=== PATIENT | female | born 1980 | race Caucasian/White ===

== ENCOUNTER 2020-05-16 14:26 | Emergency (ER) | payer OTHER ==
[2020-05-16 15:06] LABS: #Eosinphils 0.5 thou/uL (0.0-0.7); #Lymphocytes 3.1 thou/uL (1.20-3.40); #Monocytes 0.6 thou/uL (0.11-0.59); #Neutrophils 7.1 thou/uL (1.40-6.50); %Basophils 0.3 % (0.0-1.0); %Eosinophils 4.3 % (0.0-10.0); %Lymphocytes 27.5 % (21.0-51.0); %Monocytes 5.4 % (0.0-10.0); %Neutrophils 62.5 % (42.0-75.0); Hemoglobin 17.4 g/dL (12.0-16.0); Mean Corpuscular HGB CONC 34.5 g/dL (32.0-36.0); Mean Corpuscular Hemoglobin 33.2 pg (27.0-31.0); Mean Platelet Volume 7.9 fL (7.4-10.4); Platelet Count 184 thou/uL (130-400); RBC Distribution Width 11.9 % (11.5-14.5); Red Blood Cell (RBC) Count 5.25 mill/uL (4.20-5.40); White Blood Cell (WBC) Count 11.4 thou/uL (4.8-10.8)
[2020-05-16 15:25] LABS: ALT (SGPT) 57 U/L (8-55); AST (SGOT) 34 U/L (5-34); Alkaline Phosphatase 111 U/L (40-110); Anion Gap 13 mmol/L (10-20); BUN (Urea Nitrogen) 12 mg/dL (7.0-18.7); Bilirubin, Total 0.7 mg/dL (0.2-1.2); Calc. Creatinine Clearance 0 mL/min (70-130); Calcium 9.2 mg/dL (7.8-10.44); Carbon Dioxide 23 mmol/L (22-29); Chloride 103 mmol/L (98-107); Globulin 3.3 g/dL (2.4-3.5); Glucose 181 mg/dL (70-105); Lipase 36 U/L (8-78); Potassium 3.4 mmol/L (3.5-5.1); Protein, Total 7.3 g/dL (6.0-8.3); Sodium 136 mmol/L (136-145)
[2020-05-16] MEDS ORDERED: Nitroglycerin 0.4 MG TAB 1 EACH ONE (17:00)
[2020-05-16] MEDS ORDERED: Acetaminophen 500 MG TAB ONE (17:07)
[2020-05-16 17:32] LABS: BHCG - Serum Negative (NEGATIVE); Pregs Control Background? CLEAR/WHITE (CLR/WHITE); Pregs Control Bar Appear? YES (CONTROL BAR)
== END 2020-05-16 18:04 | disposition left against medical advice (07) ==
LOC: ERS 14:26
DX: R07.2 Precordial pain (principal); I10 Essential (primary) hypertension; N17.9 Acute kidney failure, unspecified; E03.9 Hypothyroidism, unspecified; F17.210 Nicotine dependence, cigarettes, uncomplicated; R29.700 NIHSS score 0
CPT/HCPCS: 36415; 70450; 71045; 80053; 83690; 84484; 84703; 85025; 93005

== ENCOUNTER 2022-03-30 10:38 | Inpatient (IN) | payer BC, SELFPAY ==
[2022-03-30 11:30] LABS: #Basophils 0.1 thou/uL (0.0-0.2); #Eosinphils 0.3 thou/uL (0.0-0.7); #Lymphocytes 2.7 thou/uL (1.20-3.40); #Monocytes 0.5 thou/uL (0.11-0.59); #Neutrophils 4.2 thou/uL (1.40-6.50); %Basophils 0.9 % (0.0-1.0); %Eosinophils 3.8 % (0.0-10.0); %Lymphocytes 34.8 % (21.0-51.0); %Monocytes 6.3 % (0.0-10.0); %Neutrophils 54.2 % (42.0-75.0); Mean Corpuscular HGB CONC 35.7 g/dL (32.0-36.0); Mean Corpuscular Hemoglobin 32.8 pg (27.0-31.0); Platelet Count 156 10x3/uL (130-400); RBC Distribution Width 11.8 % (11.5-14.5); Red Blood Cell (RBC) Count 5.49 mill/uL (4.20-5.40); White Blood Cell (WBC) Count 7.8 10x3/uL (4.8-10.8)
[2022-03-30 11:51] LABS: ALT (SGPT) 99 U/L (8-55); AST (SGOT) 53 U/L (5-34); Albumin 4.3 g/dL (3.5-5.0); Alkaline Phosphatase 181 U/L (40-110); Anion Gap 16 mmol/L (10-20); BUN (Urea Nitrogen) 11 mg/dL (7.0-18.7); Calc. Creatinine Clearance 0 mL/min (70-130); Calcium 9.5 mg/dL (7.8-10.44); Carbon Dioxide 21 mmol/L (22-29); Chloride 96 mmol/L (98-107); Estimated GFR 73; Globulin 2.9 g/dL (2.4-3.5); Potassium 3.3 mmol/L (3.5-5.1); Protein, Total 7.2 g/dL (6.0-8.3); Sodium 130 mmol/L (136-145)
[2022-03-30 11:55] LABS: Glucose 476 mg/dL (70-105)
[2022-03-30 12:17] LABS: Bacteria/HPF None Seen HPF (None Seen); Bilirubin Negative (Negative); Blood, Urine Negative (Negative); Clarity Clear (Clear); Glucose, Urine (Dipstick) Greater than 1000 mg/dL (Negative); Ketone, Urine 10 mg/dL (Negative); Leukocyte Negative Leu/uL (Negative); Nitrite Negative (Negative); Protein, Urine (Dipstick) 30 mg/dL (Neg-Trace); RBC/HPF 0-3 HPF (0-3); Specific Gravity, Urine 1.034 (1.002-1.036); Squamous Epithelial 0-3 HPF (0-3); Urobilinogen Normal mg/dL (Less than 2); WBC/HPF 0-3 HPF (0-3)
[2022-03-30] MEDS ORDERED: hydrALAZINE 20 MG/ML VIAL ONE (13:10)
[2022-03-30 13:20] LABS: Hemoglobin A1c 9.8 % (4.0-6.0)
[2022-03-30 13:26] LABS: Actual Bicarbonate (HCO3v) 22 mEq/L (22-28); Base Excess -0.6 mEq/L (-2.0 to +3.0); Calcium, Ionized (venous) 1.05 mmol/L (1.16-1.32); Chloride (VBG) 95 mmol/L (98-106); Hemoglobin (Hb) 18.3 g/dL (11.7-15.5); Potassium (VBG) 3.36 mmol/L (3.70-5.30); pH (venous) 7.47 (7.32-7.43)
[2022-03-30] MEDS ORDERED: niCARdipine 25 MG/10 ML VIAL ONE ×3 (13:41→20:08)
[2022-03-30 13:43] LABS: Magnesium 1.9 mg/dL (1.6-2.6)
[2022-03-30] MEDS ORDERED: INSULIN REGULAR IN 0.9 % NACL 100 UNIT/100 ML BAG ONE (13:55)
[2022-03-30] MEDS ORDERED: Sodium Chloride 0.9% 1,000 ML IV PRN ×4 (15:10)
[2022-03-30] MEDS ORDERED: Dextrose 5 %-0.45 % NaCl 1,000 ML IV PRN (15:10)
[2022-03-30] MEDS ORDERED: Dextrose 50% Abboject 50 ML SYRINGE SLOW IVP PRN (15:10)
[2022-03-30] MEDS ORDERED: Electrolyte Replacement Protocol 1 EACH IVPB SCH (15:10)
[2022-03-30] MEDS ORDERED: D5 1/2 NS w/20 mEq KCL 1,000 ML IV PRN (15:10)
[2022-03-30] MEDS ORDERED: NS 0.9% w/ 20 MEQ KCL 1,000 ML IV PRN (15:10)
[2022-03-30] MEDS ORDERED: Ondansetron ODT 8 MG TAB ONE (15:15)
[2022-03-30] MEDS ORDERED: HUMULIN R 100 UNITS in Sodium Chloride 0.9% 100 ML IVPB SCH (15:15)
[2022-03-30] MEDS ORDERED: NS 0.9% w/ 20 MEQ KCL 1,000 ML ONE ×2 (15:17→16:29)
[2022-03-30] MEDS: NS 0.9% w/ 20 MEQ KCL 1,000 ML IV PRN ×2 (15:35→16:31)
[2022-03-30 15:52] LABS: Anion Gap 14 mmol/L (10-20); BUN (Urea Nitrogen) 9 mg/dL (7.0-18.7); Calc. Creatinine Clearance 0 mL/min (70-130); Calcium 8.7 mg/dL (7.8-10.44); Carbon Dioxide 19 mmol/L (22-29); Chloride 100 mmol/L (98-107); Estimated GFR 88; Glucose 388 mg/dL (70-105); Potassium 2.7 mmol/L (3.5-5.1); Sodium 130 mmol/L (136-145)
[2022-03-30] MEDS ORDERED: Nicotine 14 MG PATCH ONE (16:30)
[2022-03-30] MEDS: Nicotine 14 MG PATCH TD SCH (16:31)
[2022-03-30] MEDS ORDERED: Ondansetron PF 4 MG/2 ML Vial IVP PRN (19:37)
[2022-03-30] MEDS: Acetaminophen 500 MG TAB PO PRN (20:08)
[2022-03-30] MEDS: niCARdipine 25 MG in Sodium Chloride 0.9% 250 ML 250 ML IVPB SCH ×2 (20:10→23:00)
[2022-03-30 20:44] LABS: Anion Gap 10 mmol/L (10-20); BUN (Urea Nitrogen) 8 mg/dL (7.0-18.7); Calc. Creatinine Clearance 0 mL/min (70-130); Calcium 8.3 mg/dL (7.8-10.44); Carbon Dioxide 21 mmol/L (22-29); Chloride 105 mmol/L (98-107); Estimated GFR 107; Glucose 189 mg/dL (70-105); Potassium 2.9 mmol/L (3.5-5.1); Sodium 133 mmol/L (136-145)
[2022-03-30] MEDS ORDERED: Insulin Glargine 30 UNITS/0.3 ML VIAL SC SCH (21:30)
[2022-03-30 22:10] VITALS: BMI 39.9
[2022-03-30 22:57] LABS: Magnesium 1.7 mg/dL (1.6-2.6)
[2022-03-30 23:38] LABS: Anion Gap 12 mmol/L (10-20); BUN (Urea Nitrogen) 8 mg/dL (7.0-18.7); Calc. Creatinine Clearance 215 mL/min (70-130); Calcium 8.3 mg/dL (7.8-10.44); Carbon Dioxide 18 mmol/L (22-29); Chloride 105 mmol/L (98-107); Estimated GFR 109; Glucose 245 mg/dL (70-105); Potassium 3.2 mmol/L (3.5-5.1); Sodium 132 mmol/L (136-145)
[2022-03-31] MEDS ORDERED: Dextrose 50% Abboject 50 ML SYRINGE SLOW IVP PRN ×2 (00:01→12:32)
[2022-03-31] MEDS ORDERED: Dextrose 5% in Water 1,000 ML IV PRN ×2 (00:01→12:30)
[2022-03-31] MEDS: niCARdipine 25 MG in Sodium Chloride 0.9% 250 ML 250 ML IVPB SCH ×3 (01:24→06:41)
[2022-03-31] MEDS: HumaLOG 300 UNITS/3 ML VIAL SC PRN ×5 (02:04→20:07)
[2022-03-31] MEDS: Acetaminophen 500 MG TAB PO PRN (03:20)
[2022-03-31 04:40] LABS: Anion Gap 15 mmol/L (10-20); BUN (Urea Nitrogen) 8 mg/dL (7.0-18.7); Calc. Creatinine Clearance 212 mL/min (70-130); Calcium 8.4 mg/dL (7.8-10.44); Carbon Dioxide 16 mmol/L (22-29); Cardiac Risk 7.2 (Less than 4.5); Chloride 103 mmol/L (98-107); Cholesterol 194 mg/dl (< 200 Desired); Estimated GFR 107; Glucose 272 mg/dL (70-105); HDL Cholesterol 27 mg/dL (>60 Neg Risk); LDL Cholesterol, Calculated 100 mg/dL; Potassium 3.1 mmol/L (3.5-5.1); Sodium 131 mmol/L (136-145); Triglycerides 336 mg/dL (Less than 150)
[2022-03-31] MEDS ORDERED: Potassium Chloride 20 MEQ TAB PO SCH ×2 (05:30→14:00)
[2022-03-31] MEDS ORDERED: Potassium Chloride 20 MEQ in Premix Bag 1 BAG IVPB SCH (05:30)
[2022-03-31] MEDS: Amlodipine 10 MG TAB PO SCH (08:54)
[2022-03-31] MEDS: Losartan 25 MG TAB PO SCH (10:14)
[2022-03-31] MEDS ORDERED: Labetalol HCl 100 MG/20 ML VIAL SLOW IVP PRN (11:18)
[2022-03-31 11:57] LABS: ALT (SGPT) 101 U/L (8-55); AST (SGOT) 86 U/L (5-34); Albumin 3.6 g/dL (3.5-5.0); Alkaline Phosphatase 140 U/L (40-110); Bilirubin, Direct 0.3 mg/dL (0.1-0.3); Bilirubin, Total 0.9 mg/dL (0.2-1.2); Protein, Total 6.5 g/dL (6.0-8.3)
[2022-03-31] MEDS ORDERED: Magnevist 469MG/ML 20 ML VIAL ONE (12:03)
[2022-03-31] MEDS ORDERED: Sodium Chloride 0.9% 1,000 ML IV PRN ×4 (12:30)
[2022-03-31] MEDS ORDERED: D5 1/2 NS w/20 mEq KCL 1,000 ML IV PRN (12:30)
[2022-03-31] MEDS ORDERED: Insulin Regular 300 UNITS/3 ML VIAL IVP SCH (12:30)
[2022-03-31] MEDS ORDERED: HUMULIN R 100 UNITS in Sodium Chloride 0.9% 100 ML IVPB SCH (12:30)
[2022-03-31] MEDS ORDERED: Dextrose 5 %-0.45 % NaCl 1,000 ML IV PRN (12:30)
[2022-03-31] MEDS ORDERED: ADD ELECTROLYTE REPLACEMENT SET TO PROFILE PO SCH (12:30)
[2022-03-31] MEDS ORDERED: NS 0.9% w/ 20 MEQ KCL 1,000 ML/1,000 ML BAG IV PRN ×2 (12:30)
[2022-03-31] MEDS ORDERED: Electrolyte Replacement Protocol FS PRN (12:45)
[2022-03-31 13:27] LABS: Magnesium 1.7 mg/dL (1.6-2.6)
[2022-03-31 13:30] LABS: Anion Gap 11 mmol/L (10-20); BUN (Urea Nitrogen) 7 mg/dL (7.0-18.7); Calc. Creatinine Clearance 218 mL/min (70-130); Calcium 8.4 mg/dL (7.8-10.44); Carbon Dioxide 18 mmol/L (22-29); Chloride 105 mmol/L (98-107); Estimated GFR 111; Glucose 248 mg/dL (70-105); Potassium 3.4 mmol/L (3.5-5.1); Sodium 131 mmol/L (136-145)
[2022-03-31] MEDS ORDERED: DC CCU Insulin Drip FS SCH (13:46)
[2022-03-31] MEDS ORDERED: Magnesium 2 GM/50 ML(in water) 2 GM in Premix Bag 1 BAG IVPB SCH (14:00)
[2022-03-31] MEDS: Nicotine 14 MG PATCH TD SCH (14:30)
[2022-03-31 18:21] LABS: Creatinine, Urine Less than 20.00 mg/dL (47-110); Microalbumin Urine 3.2 mg/dL (0.5-50.0); Protein, Urine Random Quant Less than 10 mg/dL (1-14); Sodium, Urine 74 mmol/L (Not Available)
[2022-03-31] MEDS ORDERED: Atorvastatin Calcium 40 MG TAB PO SCH (21:00)
[2022-03-31] MEDS ORDERED: QUEtiapine 25 MG TAB PO SCH (21:00)
[2022-04-01] MEDS: HumaLOG 300 UNITS/3 ML VIAL SC PRN ×4 (00:12→13:34)
[2022-04-01 04:19] LABS: ALT (SGPT) 71 U/L (8-55); AST (SGOT) 39 U/L (5-34); Albumin 3.4 g/dL (3.5-5.0); Alkaline Phosphatase 121 U/L (40-110); Anion Gap 13 mmol/L (10-20); BUN (Urea Nitrogen) 10 mg/dL (7.0-18.7); Bilirubin, Total 0.5 mg/dL (0.2-1.2); Calc. Creatinine Clearance 212 mL/min (70-130); Calcium 8.2 mg/dL (7.8-10.44); Carbon Dioxide 17 mmol/L (22-29); Chloride 108 mmol/L (98-107); Estimated GFR 107; Globulin 2.6 g/dL (2.4-3.5); Glucose 206 mg/dL (70-105); Sodium 135 mmol/L (136-145)
[2022-04-01 04:29] LABS: Eosinophils 1 % (0-10); Hemoglobin 15.2 g/dL (12.0-16.0); Lymphocytes 48 % (21-51); MDiff Complete? YES; Mean Corpuscular HGB CONC 35.9 g/dL (32.0-36.0); Mean Corpuscular Hemoglobin 33.8 pg (27.0-31.0); Mean Corpuscular Volume 94.1 fl (78.0-98.0); Mean Platelet Volume 8.2 fL (7.4-10.4); Monocytes 6 % (0-10); Neutrophil 45 % (42-75); Platelet Count 129 10x3/uL (130-400); Platelet Morphology Comment Appears Decreased; RBC Distribution Width 11.8 % (11.5-14.5); RBC Morphology Normal; Red Blood Cell (RBC) Count 4.51 mill/uL (4.20-5.40); White Blood Cell (WBC) Count 7.5 10x3/uL (4.8-10.8)
[2022-04-01] MEDS: Potassium Chloride 20 MEQ in Premix Bag 1 BAG IVPB SCH ×2 (04:58→07:35)
[2022-04-01] MEDS: Losartan 25 MG TAB PO SCH (07:37)
[2022-04-01] MEDS: Amlodipine 10 MG TAB PO SCH (07:38)
[2022-04-01 07:39] VITALS: BP 171/101
[2022-04-01] MEDS ORDERED: Potassium Chloride 20 MEQ TAB PO SCH (09:00)
[2022-04-01] MEDS ORDERED: Insulin Glargine 30 UNITS/0.3 ML VIAL SC SCH (09:00)
[2022-04-01] MEDS ORDERED: Aspirin 81 mg Enteric Coated Tablet PO SCH (09:00)
[2022-04-01] MEDS ORDERED: Magnesium 2 GM/50 ML(in water) 2 GM in Premix Bag 1 BAG IVPB SCH (10:30)
[2022-04-01] MEDS ORDERED: Potassium Chloride 20 MEQ in Premix Bag 1 BAG IVPB SCH (13:00)
[2022-04-01 13:07] VITALS: TEMP 97.9
[2022-04-02] MEDS ORDERED: FLU VACC QS2022-23(6MOS UP)/PF 60 MCG/0.5 ML SYRINGE IM ONE (22:30)
== END 2022-04-01 16:51 | disposition left against medical advice (07) | DRG 698 ==
LOC: ERS 10:38 → ERHOLD 14:35 → CCU 18:21
PROVIDERS: ADMIT Family Medicine; ATTEND Family Medicine
DX: I70.1 Atherosclerosis of renal artery (principal); E10.10 Type 1 diabetes mellitus with ketoacidosis without coma; I67.4 Hypertensive encephalopathy; E87.1 Hypo-osmolality and hyponatremia; I16.1 Hypertensive emergency; I10 Essential (primary) hypertension; G43.909 Migraine, unspecified, not intractable, without status migrainosus; E03.9 Hypothyroidism, unspecified; E66.9 Obesity, unspecified; E87.6 Hypokalemia; E87.8 Other disorders of electrolyte and fluid balance, not elsewhere classified; Z79.899 Other long term (current) drug therapy
CPT/HCPCS: 36415; 36416; 71045; 74185; 76770; 80048; 80053; 80061; 80076; 81003; 81015; 82010; 82043; 82533; 82805; 83036; 83735; 83880; 83930; 83935; 84100; 84156; 84300; 84443; 84484; 85025; 93005; 93975; 96374; 96375; A9579; C8902; J0360; J1650; J1815; J2405; J3475; J3480; J7050; Q0162